=== PATIENT | male | born 1975 | race Caucasian/White ===

== ENCOUNTER → 2017-12-10 | Outpatient (CLI) | payer BC ==
--- NOTE | 2017-12-10 09:02 | CT ---
EXAMINATION TYPE: CT angio chest DATE OF EXAM: 12/10/2017 COMPARISON: None HISTORY: 42-year-old male family history of thoracic aneurysm. TECHNIQUE: Contiguous axial scanning of the chest performed with IV Contrast, patient injected with 1 00 mL of Isovue 370. Coronal/sagittal MIP reconstructions performed. 3-D reconstructions generated on a dedicated independent workstation. CT DLP: 303.7 mGycm Automated exposure control for dose reduction was used. FINDINGS: Heart is normal size without pericardial effusion. Aortic root mildly ectatic at 3.7 cm. Ascending aorta normal caliber at 3.3 cm. Proximal arch normal caliber at 3.1 cm. Conventional arch vessel branching anatomy. Upper descending thoracic aorta normal caliber at 2.8 cm. The aorta at the thoracoabdominal junction measures 2.3 cm, within normal limits. No thoracic lymphadenopathy. Trace bilateral gynecomastia is noted. Mild bronchial wall thickening. No consolidation or pleural effusion. Tiny hiatal hernia. Otherwise, visualized upper abdomen shows no gross abnormality. Bones: No osseous destructive process. IMPRESSION: 1. MILDLY ECTATIC AORTIC ROOT AT 3.7 CM. OTHERWISE, NO EVIDENCE FOR THORACIC AORTIC ANEURYSM. 2. VERY MILD BRONCHIAL WALL THICKENING COULD REPRESENT BRONCHITIS OR ASTHMA.
--- NOTE | 2017-12-10 09:10 | CT ---
EXAMINATION TYPE: CT brain w con DATE OF EXAM: 12/10/2017 COMPARISON: None HISTORY: 42-year-old male migraines, complains of headaches and nausea. CT DLP: 840.9 mGycm Automated exposure control for dose reduction was used. Technique: CT scan of the head is performed with IV Contrast, patient injected with 100 mL of Isovue 370. Coronal and sagittal reconstructions performed. FINDINGS: There is no abnormal enhancing mass or midline shift identified. The ventricles and sulci are within normal limits in size. No extra-axial fluid collection. The globes are intact. Mild mucosal thickeni ng within the ethmoid air cells. Mastoid air cells well pneumatized. IMPRESSION: Negative contrast enhanced head CT exam. If the patient has chronic migraines and there is concern fo r associated white matter changes, MRI can be considered.
== END | disposition home or self-care (01) ==
LOC: RADCTMAIN 07:09
PROVIDERS: ATTEND Family Medicine
DX: G43.911 Migraine, unspecified, intractable, with status migrainosus (principal); I77.810 Thoracic aortic ectasia; J98.09 Other diseases of bronchus, not elsewhere classified; Z82.49 Family history of ischemic heart disease and other diseases of the circulatory system
CPT/HCPCS: 70460; 71275; Q9967